=== PATIENT | female | born 1975 | race African-American/Black ===

== ENCOUNTER 2018-01-04 15:19 | Emergency (ER) | payer OTHER ==
[2018-01-04 15:54] LABS: #Lymphocytes 1.4 thou/uL (1.20-3.40); #Monocytes 0.4 thou/uL (0.11-0.59); #Neutrophils 3.1 thou/uL (1.40-6.50); %Basophils 0.1 % (0.0-1.0); %Eosinophils 0.8 % (0.0-10.0); %Lymphocytes 28.8 % (21.0-51.0); %Monocytes 8.4 % (0.0-10.0); %Neutrophils 61.9 % (42.0-75.0); Hemoglobin 7.1 g/dL (12.0-16.0); Mean Corpuscular HGB CONC 29.6 g/dL (32.0-36.0); Mean Corpuscular Hemoglobin 21.1 pg (27.0-31.0); Mean Corpuscular Volume 71.2 fL (78.0-98.0); Mean Platelet Volume 10.3 fL (7.4-10.4); Platelet Count 279 thou/uL (130-400); RBC Distribution Width 20.6 % (11.5-14.5); Red Blood Cell (RBC) Count 3.37 mill/uL (4.20-5.40)
[2018-01-04 16:05] LABS: BHCG - Serum Negative (NEGATIVE); Pregs Control Background? CLEAR/WHITE (CLR/WHITE); Pregs Control Bar Appear? YES (CONTROL BAR)
[2018-01-04 16:15] LABS: Anisocytosis MODERATE=16-30 cells (100X) (0-5/hpf); Hypochromia SLIGHT = 6-15 cells (100X) (0-5/hpf); MDiff Complete? YES; Microcytosis SLIGHT = 6-15 cells (100X) (0-5/hpf); Ovalocytes SLIGHT = 2-5 cells (100X) (0-1/hpf); PLT Morphology Comment Appears Adequate; Polychromasia SLIGHT = 2-3 cells (100X) (0-2/hpf); Target Cells SLIGHT = 2-5 cells (100X) (0-1/hpf); Tear Drops SLIGHT = 2-5 cells (100X) (0-1/hpf)
== END 2018-01-04 16:07 | disposition home or self-care (01) ==
LOC: ERS 15:19
DX: D64.9 Anemia, unspecified (principal); Z87.891 Personal history of nicotine dependence
CPT/HCPCS: 36415; 84703; 85025; 86850; 86900; 86901; 99284

== ENCOUNTER 2018-05-14 08:09 | Inpatient (IN) | payer OTHER ==
--- NOTE | 2018-05-12 23:32 | HP ---
She is set for surgery on 05/14/2018, this Sunday. HISTORY OF PRESENT ILLNESS: Ms. Gamboa is a 42-year-old -[place] female, G3, P3 with tubal li gation who was referred for abnormal Pap smear. She also has a history of uterine fibroids with heav y menstruation, where she saturates a pad every hour. She was evaluated in my office on January is year for colposcopy due to the abnormal Pap smear. She also underwent transvaginal ultrasound due to abnormal uterine findings on her exam. At that time, her uterus measured 12.6 x 9.7 x 7.5 cm, en dometrial thickness 20 mm. Both her left and right ovaries were normal in appearance. She underwent colposcopic-directed biopsies for abnormal low-grade MANSI of the cervix, which yielded C IN 3 consistent with high-grade dysplasia. PAST MEDICAL HISTORY: Negative. PAST SURGICAL HISTORY: Previous breast biopsy for benign lesion. SOCIAL HISTORY: [facility] She is a nonsmoker. No curren t alcohol or drug abuse reported. FAMILY HISTORY: Noncontributory. CURRENT MEDICATIONS: Stool softener and iron due to history of anemia due to menorrhagia. ALLERGIES: She has no known drug allergies. PHYSICAL EXAMINATION: GENERAL: Height is 5 feet 5 inches, weight 167 pounds, BMI 27.8. VITAL SIGNS: Blood pressure is 120/86, pulse regular at 81, respirations 18. HEENT: Within normal limits. CHEST: Clear to auscultation. HEART: Regular rate and rhythm. S1, S2 heart sounds. No murmurs, rubs, or gallops. ABDOMEN: Soft, nontender. No hepatosplenomegaly. Uterus is 14-week size. PELVIC: Vulva and vagina had no lesions. Cervix had no visible lesions. Colposcopic exam had been performed yielding RAHEEM 3. Her cervix had no obvious visible lesions. Uterus is enlarged, irregular contour, midline, and nontender. Adnexa were nontender with no masses. SKIN: Had no lesions. ASSESSMENT: This is a 42-year-old -[place] female, G3, P3, prior tubal ligation with, 1. 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 2. Menorrhagia and uterine fibroids, 14-week size. PLAN: Plan is for definitive surgical therapy with robotic total laparoscopic hysterectomy and remov al of bilateral fallopian tubes. We will remove the uterus through ExCITE procedure. The patient kate d underwent preoperative evaluation and description of the procedure was discussed in detail.
[2018-05-13 10:59] VITALS: BMI 26.2
[2018-05-14] MEDS ORDERED: Bupivacaine HCl 0.5%/Epinephrine 1:200,000/PF 30 ml Vial ONE (09:07)
[2018-05-14] MEDS ORDERED: Gabapentin 300 MG CAP ONE (09:11)
[2018-05-14] MEDS ORDERED: CEFAZOLIN 2 GM/50 ML BAG ONE (09:11)
[2018-05-14] MEDS ORDERED: Famotidine/PF 20 mg/2ml Vial ONE ×2 (09:12→09:49)
[2018-05-14] MEDS ORDERED: CeleCOXIB 100 MG CAP ONE (09:12)
[2018-05-14] MEDS ORDERED: Fentanyl 100 MCG/2 ML VIAL ONE ×4 (09:49→14:28)
[2018-05-14] MEDS ORDERED: Midazolam HCl 2 mg/2 ml Vial ONE (09:50)
[2018-05-14 09:56] LABS: #Basophils 0.1 thou/uL (0.0-0.2); #Lymphocytes 1.1 thou/uL (1.20-3.40); #Monocytes 0.3 thou/uL (0.11-0.59); #Neutrophils 2.2 thou/uL (1.40-6.50); %Basophils 1.5 % (0.0-1.0); %Eosinophils 0.7 % (0.0-10.0); %Lymphocytes 30.1 % (21.0-51.0); %Monocytes 8.4 % (0.0-10.0); %Neutrophils 59.4 % (42.0-75.0); Hemoglobin 11.9 g/dL (12.0-16.0); Mean Corpuscular HGB CONC 30.5 g/dL (32.0-36.0); Mean Corpuscular Hemoglobin 28.9 pg (27.0-31.0); Mean Corpuscular Volume 94.7 fL (78.0-98.0); Mean Platelet Volume 9.9 fL (7.4-10.4); Platelet Count 227 thou/uL (130-400); RBC Distribution Width 13.8 % (11.5-14.5); Red Blood Cell (RBC) Count 4.11 mill/uL (4.20-5.40); White Blood Cell (WBC) Count 3.8 thou/uL (4.8-10.8)
[2018-05-14] MEDS ORDERED: Ondansetron HCl/PF 4 MG/2 ML Vial IVP PRN ×2 (12:24→13:58)
[2018-05-14] MEDS ORDERED: Meperidine HCl/PF 25 MG/ML VIAL SLOW IVP PRN ×2 (12:24→13:58)
[2018-05-14] MEDS ORDERED: Promethazine HCl 25 MG/ML VIAL IM PRN ×3 (12:24→13:58)
[2018-05-14] MEDS ORDERED: Promethazine HCl 25 MG/ML VIAL SLOW IVP PRN ×2 (12:24→13:58)
[2018-05-14] MEDS ORDERED: Ondansetron PF 4 MG/2 ML Vial IVP PRN (13:41)
[2018-05-14] MEDS ORDERED: traMADol HCl 50 MG TAB PO PRN ×2 (13:41)
[2018-05-14] MEDS ORDERED: Bisacodyl 10 MG SUPP PR PRN (13:41)
[2018-05-14] MEDS ORDERED: Zolpidem Tartrate 5 MG TAB PO PRN (13:41)
[2018-05-14] MEDS ORDERED: diphenhydrAMINE 25 MG CAP PO PRN (13:41)
[2018-05-14] MEDS ORDERED: Ondansetron PF 4 MG/2 ML Vial ONE (14:44)
[2018-05-14] MEDS ORDERED: Metoclopramide HCl 10 MG/2 ML VIAL ONE (14:44)
[2018-05-14] MEDS ORDERED: ePHEDrine/0.9% NaCl/PF SYRINGE 50 mg/10 ml ONE (14:44)
[2018-05-14] MEDS ORDERED: Glycopyrrolate 0.2 MG/ML 5 ML SYRINGE ONE (14:44)
[2018-05-14] MEDS ORDERED: Lidocaine 1% PF 5 ML VIAL ONE (14:44)
[2018-05-14] MEDS ORDERED: PROPOFOL 200 MG/20 ML VIAL ONE (14:44)
[2018-05-14] MEDS ORDERED: Dexamethasone 20 MG/5 ML VIAL ONE (14:44)
[2018-05-14] MEDS ORDERED: Ketorolac Tromethamine 30 MG/ML VIAL ONE (14:44)
[2018-05-14] MEDS: Lactated Ringer's 1,000 ML IV SCH ×2 (15:52→22:45)
[2018-05-14 16:08] LABS: HBSAg Index 0.22 S/CO (0-0.99); Hep B Surf Ag Non-Reactive S/CO (NonReactive); Hep C IgG Ab Non-Reactive (NonReactive); Hep C Index 0.06 S/CO (0-0.79)
[2018-05-14 16:16] LABS: HIV (1/2) Antibody/Antigen Non-Reactive (NonReactive); HIV 1/2 INDEX 0.13 S/CO (<1.00)
[2018-05-14 16:17] LABS: Syphilis Antibody Nonreactive (Nonreactive); Syphilis Antibody Index 0.08 S/CO (<1.00 Non-Reactive)
[2018-05-14] MEDS: Ferrous Gluconate 324 MG TAB PO SCH (17:38)
[2018-05-14] MEDS: Ketorolac Tromethamine 30 MG/ML VIAL IVP SCH ×2 (18:08→23:41)
[2018-05-14] MEDS: Simethicone Chewable 80 MG TAB PO PRN ×2 (18:45→23:53)
--- NOTE | 2018-05-14 18:53 | OP ---
DATE OF SURGERY: 05/14/2018 PREOPERATIVE DIAGNOSES: A 42-year-old -[place] female with, 1. Symptomatic 16-week uterine fibroids, menorrhagia, dysmenorrhea. 2. Severe cervical dysplasia of the cervix. POSTOPERATIVE DIAGNOSES: A 42-year-old -[place] female with, 1. Symptomatic 16-week uterine fibroids, menorrhagia, dysmenorrhea. 2. Severe cervical dysplasia of the cervix. PROCEDURE PERFORMED: 1. Robotic TLH with bilateral salpingectomy. 2. Removal of the uterus via the ExCITE procedure. SURGEON: Jes Fraser M.D. OPHTHALMIC TECH SURGEON: Faiza Reis MD ANESTHESIA: General endotracheal. ESTIMATED BLOOD LOSS: 100 mL COMPLICATIONS: None. COUNTS: Correct x2. ANTIBIOTICS: Two grams Ancef agronomy instructor to the OR. FINDINGS: 1. Normal-appearing bilateral ovaries and two fallopian tubes, status post BTL. 2. Approximately 16-week size uterus with multiple small and large fibroids, largest fibroid being a pproximately 6 cm in posterior mid uterus. 3. Bilateral ureteral peristalsis visualized post procedure along with bladder being watertight to f luid distention over 300 mL post procedure. DISPOSITION: To the recovery room, stable. DESCRIPTION OF OPERATIVE PROCEDURE: The patient previously received informed consent in regard to [facility]. She was taken back to the operating room where she received a general endotracheal anesthetic agent without complications. She was then placed in the dorsal lithotomy position with the use of A llen stirrups and prepped and draped in usual sterile fashion. Ceja catheter was placed at this nanci e. Sidearm speculum was placed in the vagina. Anterior lip of cervix grasped with single tooth mike culum. Uterus sounded to 10 cm and a size 10 cm CORDELIA uterine manipulator with a 4.0 cervical cup was placed. Tenaculum and speculum were then removed. Attention was then turned to the abdomen where p erspective trocar sites were infiltrated with 0.5% Marcaine with epinephrine. A 12 mm supraumbilical incision was made. Veress needle was entered into the peritoneal cavity. Patient pressure was note d to be less than 15 and abdomen was insufflated to patient pressure of 15, approximately 4.5 liters of carbon dioxide gas. The laparoscope was then introduced through a trocar sleeve and the previousl y mentioned findings as noted. Due to the large size of the uterus, we then felt that this would nee d to be removed in a contain bag technique and therefore, the umbilical incision was extended to the fascial defect. Approximately 2.5 cm small Gelpoint was then placed in the umbilicus region. Trocar sleeve was placed through the Gelpoint, laparoscope was introduced there and then additional bilater al lower quadrant 8 mm robotic trocars along with a right upper quadrant 11 mm bindery assistant port was the n placed. The robot was then docked in usual fashion. The patient had been placed in deep Trendelen rajan position. I proceeded to carry out this surgery from the operative console where my assistants remained at the bedside. Uterus was elevated from the pelvis. The left ovary and fallopian tube wer e identified. My bindery assistant grasped the fimbriated edge of the fallopian tube and then this was caute rized at the mesosalpinx with bipolar fenestrated cautery and excised with monopolar scissors. This tube was removed through right upper quadrant bindery assistant port. The left uterine ovarian ligament was identified, coagulated with bipolar fenestrated cautery, transected. Serial coagulation of the broad ligament, hugging close to uterus and fibroid specimen was carried out dissecting the peritoneum, la teral and dissecting the uterus towards the midline, freeing the pelvic sidewall. The course of the uterus was visualized during this time and was inferior to the dissection region. The left round lig ament was then reached. It was coagulated and transected. The anterior leaf of the broad ligament w as entered. The vesicouterine peritoneum was incised in a layering technique dissecting the bladder atraumatically past the cervical vaginal angle, which was visualized by the indention of the cervical cup from the manipulator. The uterine vessels on the left side were skeletonized in a layering tech nique and coagulated internal cervical os region. This was carried out in likewise fashion starting again on the right fallopian tube where it was grasped by my bindery assistant and the mesosalpinx of the tub e was coagulated and transected and the tube was removed through the right upper quadrant. The right uterine ovarian ligaments again were coagulated and transected. Serial coagulation of the broad lig ament, hugging close to the uterus, was carried out until the right round ligament was reached. They again was coagulated and transected. Anterior leaf of broad ligament again was entered incising the vesicouterine peritoneum in a layering technique until the bladder was safely past the cervical vagi nal junction. The internal uterine vessels after they were skeletonized were coagulated again in a l ikewise fashion. The anterior colpotomy was then made starting at the 12 to 3 o'clock position and t he uterine vessels that remained here were coagulated inside the colpotomy incision site. The yeast cake cutter ior colpotomy was then completed from 6-9 and 6-3 in similar fashion. The specimen was then released and the pelvis and taken off the uterine manipulator and would be able to be removed in morcellating technique contain bag due to the size. There was some bleeding of small uterine artery bleeder on t he patient's left side at the 9 o'clock position. Monopolar scissor cautery had been switched out fo r [place] needle haul truck driver. This allowed me to grasp the cuff and elevated and then the individual vessel was coagulated under direct visualization with good hemostasis. After this was secured, the Strataf ix was brought in by my bindery assistant through the right upper quadrant, one end of the vaginal cuff was c losed in full thickness starting right angle back to the left angle back towards the midline. This s uture was cut and removed intact to the right upper quadrant port. At this time, the large bag which had been placed prior to replacing the laparoscope in the right upper quadrant was brought sandip n into the pelvis. It had been folded and tied with 2 sutures. The bag was placed in the pelvis in the upright position and the specimen was then brought above the bag by myself and my bindery assistant. The suture ties were then cut by my bindery assistant with Endo[employer]ars and this allowed for opening of the bag an d allowing us to stuff the specimen into the bag. The free end of the loop string was brought through a free tie loop and then we pulled this up towards the Gelpoint. I broke the scrub and then we decided to start pulling the bag up through the Gelpoint and then we noticed at this time that the specimen had apparently fallen out, so therefore, we redocked the robot and then repeated this in si milar fashion and again visualizing the tissue be in place within the bag and this was secured bringi ng the string through the loop and this was kept under direct visualization. At this time, we noted that the specimen was contained within the bag and then we proceeded to place the guard over the Gelp oint site, and the specimen was then grasped with Madan thyroid clamps and it was removed in a contai baltazar morcellating technique with a C cut to allow the specimen and it was removed. The bag was then i nspected and was noted to be intact and watertight. The bag had been removed. The fascial edges of the umbilical defect was then closed with a running 0 Vicryl suture with good fascial closure noted. All the other trocar sites were closed with subcuticular 4-0 Monocryl and Dermabond for good hemosta sis. The pelvis was inspected and no active bleeding was noted in the vaginal cuff side vaginally wi th a sponge stick. The patient was awakened from anesthesia and transferred to the recovery room in stable condition.
[2018-05-14] MEDS: Docusate 100 MG CAP PO SCH (21:16)
[2018-05-14] MEDS: Ibuprofen 800 MG TAB PO SCH (21:17)
[2018-05-15] MEDS: Lactated Ringer's 1,000 ML IV SCH ×2 (05:52→15:58)
[2018-05-15] MEDS: Ketorolac Tromethamine 30 MG/ML VIAL IVP SCH ×2 (05:53→12:50)
[2018-05-15 06:25] LABS: Hemoglobin 9.5 g/dL (12.0-16.0); Mean Corpuscular HGB CONC 31.4 g/dL (32.0-36.0); Mean Corpuscular Hemoglobin 29.7 pg (27.0-31.0); Mean Corpuscular Volume 94.4 fL (78.0-98.0); Mean Platelet Volume 9.5 fL (7.4-10.4); Platelet Count 190 thou/uL (130-400); RBC Distribution Width 13.3 % (11.5-14.5); White Blood Cell (WBC) Count 11.2 thou/uL (4.8-10.8)
[2018-05-15] MEDS: Ferrous Gluconate 324 MG TAB PO SCH (08:39)
[2018-05-15] MEDS: Docusate 100 MG CAP PO SCH (08:39)
[2018-05-15] MEDS: Ibuprofen 800 MG TAB PO SCH (09:11)
[2018-05-15 12:07] VITALS: BP 105/58; TEMP 98.4
--- NOTE | 2018-05-15 20:17 | DIS ---
DATE OF ADMISSION: 05/14/2018 DATE OF DISCHARGE: 05/15/2018 DIAGNOSES: 1. Symptomatic 16-week uterine fibroids. 2. Severe cervical dysplasia. PROCEDURES PERFORMED: Robotic total laparoscopic hysterectomy, bilateral salpingectomy with pr ocedure for tissue removal. SUMMARY OF HOSPITAL COURSE: Ms. Gamboa is a 42-year-old -[place] female with long history of menorrhagia with previous severe anemia due to uterine fibroids. She was recently also diagnosed wit h cervical dysplasia severe. She underwent a definitive surgical therapy with robotic total laparosc opic hysterectomy and bilateral salpingectomy on 05/14/2018. Postoperatively, she has done well. Vi britt signs remained stable. She has remained afebrile. Her postoperative hematocrit was 30.8%. She was ambulating and voiding without difficulty on postop day #1 and tolerating diet. She was discharg ed with discharge medication Tramadol 50 mg q.6 hours p.r.n. pain, ibuprofen 800 mg p.o. q.8 hours p. r.n. pain. Pathology is pending at this time of dictation and she has scheduled followup 6 brenna marques postop.
== END 2018-05-15 16:03 | DRG 743 ==
LOC: EEVIPCON 08:09 → SURG A 08:09 → 3SE 15:14
PROVIDERS: ADMIT Obstetrics & Gynecology; ATTEND Obstetrics & Gynecology
PROC: 0UT94ZZ Resection of Uterus, Percutaneous Endoscopic Approach (ICD-10-PCS; principal; 2018-05-14)
PROC: 0UT24ZZ Resection of Bilateral Ovaries, Percutaneous Endoscopic Approach (ICD-10-PCS; 2018-05-14)
PROC: 0UT74ZZ Resection of Bilateral Fallopian Tubes, Percutaneous Endoscopic Approach (ICD-10-PCS; 2018-05-14)
PROC: 8E0W4CZ Robotic Assisted Procedure of Trunk Region, Percutaneous Endoscopic Approach (ICD-10-PCS; 2018-05-14)
DX: N92.0 Excessive and frequent menstruation with regular cycle (principal); D06.9 Carcinoma in situ of cervix, unspecified; N94.6 Dysmenorrhea, unspecified; D25.9 Leiomyoma of uterus, unspecified; D50.0 Iron deficiency anemia secondary to blood loss (chronic)
CPT/HCPCS: 36415; 85025; 85027; 86780; 86803; 86850; 86900; 86901; 87340; 87389; 88307; J0131; J0670; J1100; J1885; J2001; J2250; J2405; J2704; J2765; J3010; S0028

== ENCOUNTER 2018-05-23 20:52 | Inpatient (IN) | payer OTHER ==
[~2018-05-23 20:52] MED LIST: ISOVUE-370 76%-LOCM 1 ML ONE
[2018-05-23] MEDS ORDERED: Morphine 4 MG/ML VIAL ONE (21:30)
[2018-05-23 21:42] LABS: #Eosinphils 0.1 thou/uL (0.0-0.7); #Lymphocytes 0.9 thou/uL (1.20-3.40); #Monocytes 0.5 thou/uL (0.11-0.59); #Neutrophils 10.4 thou/uL (1.40-6.50); %Basophils 0.2 % (0.0-1.0); %Eosinophils 0.5 % (0.0-10.0); %Lymphocytes 7.5 % (21.0-51.0); %Monocytes 4.5 % (0.0-10.0); %Neutrophils 87.2 % (42.0-75.0); Hemoglobin 10.6 g/dL (12.0-16.0); Mean Corpuscular HGB CONC 33.5 g/dL (32.0-36.0); Mean Corpuscular Hemoglobin 30.7 pg (27.0-31.0); Mean Corpuscular Volume 91.9 fL (78.0-98.0); Mean Platelet Volume 8.9 fL (7.4-10.4); Platelet Count 276 thou/uL (130-400); RBC Distribution Width 13.3 % (11.5-14.5); Red Blood Cell (RBC) Count 3.44 mill/uL (4.20-5.40)
[2018-05-23 22:03] LABS: ALT (SGPT) 9 U/L (8-55); AST (SGOT) 16 U/L (5-34); Albumin 3.5 g/dL (3.5-5.0); Alkaline Phosphatase 72 U/L (40-150); Anion Gap 10 mmol/L (10-20); BUN (Urea Nitrogen) 13 mg/dL (7.0-18.7); Bilirubin, Total 0.4 mg/dL (0.2-1.2); Calc. Creatinine Clearance 0 mL/min (70-130); Calcium 8.7 mg/dL (7.8-10.44); Carbon Dioxide 23 mmol/L (22-29); Chloride 106 mmol/L (98-107); Estimated GFR-MDRD Greater than 90; Globulin 4.6 g/dL (2.4-3.5); Glucose 101 mg/dL (70-105); Protein, Total 8.1 g/dL (6.0-8.3); Sodium 135 mmol/L (136-145)
[2018-05-23 22:24] LABS: Bilirubin Negative (Negative); Blood, Urine Moderate (Negative); Clarity CLEAR (Clear); Glucose, Urine (Dipstick) Negative (Negative); Leukocyte Moderate (Negative); Nitrite Negative (Negative); Protein, Urine (Dipstick) 30 mg/dL (Neg-Trace); Urobilinogen 0.2 mg/dL (0.2-1.0)
[2018-05-23 22:26] LABS: Bacteria/HPF Rare-Few HPF (None Seen); Pathc Cast-AUWi Flag 1.59 (0-2.49); Squamous Epithelial 0-3 HPF (0-3)
--- NOTE | 2018-05-23 22:28 | CT ---
ABDOMEN AND PELVIS CT 05/23/18 COMPARISON: None. HISTORY: Abdominal and pelvic pain with cramping. TECHNIQUE: Axial CT imaging at 5 mm intervals from lung bases through pubic symphysis with intravenous contrast. Coronal reformatted imaging obtained. FINDINGS: Lack of oral contrast limits assessment of the bowel. Imaged lung bases unremarkable. No free intrape ritoneal air. The liver, gallbladder, and spleen appear unremarkable. The pancreas, adrenal glands, and kidneys are unremarkable. There is a suggestion of wall thickening involving the sigmoid colon and rectum with perirectal infla mmatory change and presacral fat stranding. This suggests an inflammatory process of distal sigmoid c olon and rectum. In addition, there appear to be abnormal thick walled loops of small bowel within th e pelvis anteriorly and in the right lower quadrant, which includes the terminal ileum. There is exte nsive inflammatory fat stranding involving the lower pelvis superior to the urinary bladder which dem onstrates continuity between the abnormal appearing distal colon and the abnormal appearing distal sm all bowel. The appendix appears grossly unremarkable. The vascular structures of the abdomen and pelvis appear patent. No discrete lymphadenopathy is appre ciated within the abdomen or pelvis. The osseous structures demonstrate no worrisome lytic or blastic lesions. IMPRESSION: Extensive inflammatory change within the pelvis with findings suggesting inflammation of distal colon as well distal small bowel. This suggests a multifocal inflammatory process, which may be on the bas is of inflammatory bowel disease/Crohn's disease. Nonspecific infectious process is a possibility. Re commend short term followup imaging following treatment to document resolution. No drainable abscess is evident at this time. Additional history provided includes pelvic surgery on 05/14/18. Thus, this inflammatory process cou ld potentially be on the basis of postoperative infection. Clinical correlation is essential. Results called to Dr. Treviño at 10 p.m., 05/23/18. Code CR POS: [facility]
[2018-05-23 22:31] LABS: Specific Gravity, Urine Greater than 1.060 (1.002-1.036)
[2018-05-23 22:49] LABS: Hyaline Casts/LPF 0-3 HYALINE CAST LPF (0-3 Hyaline)
[2018-05-24] MEDS ORDERED: Ondansetron ODT 4 MG TAB SL PRN (01:14)
[2018-05-24] MEDS ORDERED: Ondansetron PF 4 MG/2 ML Vial IVP PRN (01:14)
[2018-05-24] MEDS ORDERED: Acetaminophen 325 MG TAB PO PRN (01:14)
[2018-05-24] MEDS ORDERED: Morphine 10 MG/ML VIAL SLOW IVP PRN (01:15)
[2018-05-24] MEDS: Lactated Ringer's 1,000 ML IV SCH ×2 (01:40→10:56)
[2018-05-24 02:54] VITALS: BMI 27.6
[2018-05-24] MEDS ORDERED: Nitrofurantoin Monohyd/M-Cryst 100 MG CAP PO SCH (09:00)
[2018-05-24] MEDS: Morphine 2 MG/ML SYRINGE SLOW IVP PRN (09:45)
[2018-05-24] MEDS: Clindamycin/D5W 900 MG in Premix Bag 1 BAG IVPB SCH ×2 (10:55→18:38)
[2018-05-24] MEDS: Ibuprofen 800 MG TAB PO SCH ×2 (12:09→18:37)
[2018-05-24] MEDS: Ampicillin 2 GM in Sodium Chloride 0.9% 100 ML IVPB SCH ×3 (12:10→23:29)
[2018-05-24] MEDS: Gentamicin Sulfate 320 MG in Sodium Chloride 0.9% 100 ML IVPB SCH (12:51)
[2018-05-24] MEDS: HYDROcodone/Acetaminophen 5/325 mg Tablet PO PRN ×2 (18:01→23:35)
--- NOTE | 2018-05-25 00:08 | HP ---
CHIEF COMPLAINT: Lower abdominal cramping. HISTORY OF PRESENT ILLNESS: This is a 42-year-old status post robotic-assisted total laparoscopic hysterectomy and bilateral salpingectomy with extracorporeal morcellation for benign fibroid uterus, postoperative day #9, doing well up until 3 days ago, she began having increasingly and progressive lower abdominal cramping pain, she describes as contractions that will come strong for 20 to 30 seconds and then resolve. This has been increasing in frequency and intensity. This pain is unrelieved with ibuprofen and Tylenol. She does endorse some chills and some radiating pain down to her rectum and back. She was initially constipated and then took some milk of magnesia and that resulted in diarrhea. She also reports slight increase in frequency of urination, no burning with urination. She denies any vaginal bleeding or vaginal discharge. She has had fairly normal appetite and denies any nausea or vomiting. REVIEW OF SYMPTOMS: A 12-point review of systems is negative except as noted in HPI. PAST MEDICAL HISTORY: None. PAST SURGICAL HISTORY: Breast biopsy for benign breast lesion. SOCIAL HISTORY: Currently incarcerated. Negative for tobacco, alcohol, or drug use. FAMILY HISTORY: Noncontributory. CURRENT MEDICATIONS: 1. Ibuprofen 800 mg p.o. q.8 hours p.r.n. pain. 2. Iron sulfate 325 mg p.o. b.i.d. 3. Colace stool softener 100 mg p.o. b.i.d. ALLERGIES: NO KNOWN DRUG ALLERGIES. PHYSICAL EXAMINATION: VITAL SIGNS: Blood pressure 101/50, pulse 70, respirations 20, pulse ox 97% on room air, temperature 98.3. GENERAL: No acute distress. Alert and oriented x3. CARDIAC: Regular rate and rhythm. LUNGS: Clear to auscultation bilaterally. ABDOMEN: Soft, nondistended, diffusely tender, more so in the lower abdomen. No guarding or rebound. No palpable masses or hernias present. Incisions are healing well with Dermabond glue in place. EXTREMITIES: No edema, cyanosis, or clubbing. PELVIC: Normal external female genitalia. The vaginal mucosa is moist without masses or lesions. The vaginal cuff is visualized. There is some yellow-brown discharge present at the level of the vaginal cuff. There is an approximately 2-cm area with a whitish appearance at the suture line on the patient's right side that is swabbed with a Q-tip and found to have fibrinous exudate and is extremely tender to palpation and has surrounding erythematous tissue with induration present. On bimanual exam, the entire suture line is exquisitely tender for the patient. The cuff was palpated to be intact. LABORATORY DATA: White count 12.0, hemoglobin 10.6, hematocrit 31.6, platelets are 276. Chemistries are normal. UA shows 1+ protein, trace of ketones, moderate blood, moderate leukocyte esterase. Culture is pending. IMAGING DATA: CT of the abdomen and pelvis shows extensive inflammatory change within the pelvis with findings suggesting inflammation of the distal colon as well as distal small bowel. No drainable abscess is present. ASSESSMENT AND PLAN: This is a 42-year-old postoperative day #10 from robotic-assisted hysterectomy, now presenting with increased abdominal pain and findings on exam consistent with vaginal cuff cellulitis. The patient will be admitted as an inpatient for treatment with IV antibiotics for 24 to 48 hours until clinical improvement and pain is present. She has no fever at this time and if spikes a temp, would plan to drawn blood cultures. She had a urine culture that is currently pending and evidence of urinary tract infection on urinalysis as well. Antibiotic choice will be broad spectrum with ampicillin, gentamicin, and clindamycin. She will be allowed a regular diet as well as ambulation ad jenny and pain control with p.o. pain meds of [place] and ibuprofen. Job ID: [id number]
[2018-05-25] MEDS: Ibuprofen 800 MG TAB PO SCH ×3 (02:48→17:39)
[2018-05-25] MEDS: Clindamycin/D5W 900 MG in Premix Bag 1 BAG IVPB SCH ×3 (02:48→18:19)
[2018-05-25] MEDS: Ampicillin 2 GM in Sodium Chloride 0.9% 100 ML IVPB SCH ×4 (05:57→23:57)
--- NOTE | 2018-05-25 08:49 | PRG ---
DATE OF SERVICE: 05/25/2018 POSTOPERATIVE READMIT SUBJECTIVE: The patient is hospital day #2, postop day #10, status post a robotic-assisted total laparoscopic hysterectomy, admitted for cuff cellulitis, on ampicillin, gentamicin, and clindamycin. The patient has remained afebrile during her stay. This morning, she reports that her pain overall has been improving as compared to yesterday at the time of admission. The patient denies fever. PHYSICAL EXAMINATION: VITAL SIGNS: This morning, her blood pressure is 95/50, respiratory rate of 16, temperature is 98.2, and pulse is 76. GENERAL: She appears to be in no acute distress. She is alert and oriented, cooperative, and pleasant to interact with. HEAD: Normocephalic, atraumatic. ABDOMEN: Incisions were clean, dry, and intact on her abdomen. Abdomen is appropriately tender. ASSESSMENT AND PLAN: The patient is hospital day #2, has had about 24 hours of antibiotics for a postop cuff cellulitis after a total laparoscopic hysterectomy. Pain is improving as compared to admission. We will continue antibiotics for the next 24 hours and anticipate discharge tomorrow with oral antibiotics. Job ID: [id number]
[2018-05-25] MEDS: Gentamicin Sulfate 320 MG in Sodium Chloride 0.9% 100 ML IVPB SCH (09:21)
[2018-05-25] MEDS: HYDROcodone/Acetaminophen 5/325 mg Tablet PO PRN ×3 (11:14→23:56)
[2018-05-25] MEDS: Morphine 2 MG/ML SYRINGE SLOW IVP PRN (18:19)
[2018-05-26] MEDS: Ibuprofen 800 MG TAB PO SCH ×3 (02:23→17:24)
[2018-05-26] MEDS: Clindamycin/D5W 900 MG in Premix Bag 1 BAG IVPB SCH ×3 (02:24→18:10)
[2018-05-26] MEDS: Ampicillin 2 GM in Sodium Chloride 0.9% 100 ML IVPB SCH ×3 (06:17→17:24)
[2018-05-26] MEDS: HYDROcodone/Acetaminophen 5/325 mg Tablet PO PRN ×3 (07:20→17:26)
[2018-05-26] MEDS ORDERED: Bisacodyl 5 MG TAB PO PRN (07:29)
[2018-05-26] MEDS: Gentamicin Sulfate 320 MG in Sodium Chloride 0.9% 100 ML IVPB SCH (10:42)
[2018-05-27] MEDS: HYDROcodone/Acetaminophen 5/325 mg Tablet PO PRN ×4 (00:05→17:22)
[2018-05-27] MEDS: Clindamycin/D5W 900 MG in Premix Bag 1 BAG IVPB SCH ×3 (00:12→17:22)
[2018-05-27] MEDS: Ampicillin 2 GM in Sodium Chloride 0.9% 100 ML IVPB SCH ×4 (00:39→17:22)
[2018-05-27] MEDS: Ibuprofen 800 MG TAB PO SCH ×3 (02:18→18:09)
--- NOTE | 2018-05-27 07:48 | PRG ---
DATE OF SERVICE: 05/26/2018 TIME OF SERVICE: 0730. SUBJECTIVE: Ms. Gamboa is on hospital day #2 for postoperative cuff cellulitis status post TLH. The patient reports that her abdominal pain is essentially unchanged from yesterday. In addition, she has not been able to have a bowel movement postoperatively. She does report passing gas. She reports no difficulties with urination. She reports no vomiting. OBJECTIVE: VITAL SIGNS: Temperature is 98.7, pulse 76, respirations 18, blood pressure 127/61, T-max is 98.7 yesterday. LUNGS: Clear to auscultation bilaterally. HEART: Regular rate and rhythm. ABDOMEN: Soft. She has discomfort to palpation in bilateral lower quadrants and in the midline. She has positive bowel sounds. No CVA tenderness. PELVIC: Deferred. EXTREMITIES: No clubbing, cyanosis, or edema. LABORATORY DATA: The patient has not had any repeat labs since admission; however, initial WBC was 12,000, and with no fever, I see no point for repeating at this time. MICROBIOLOGY: Urine culture on revealed presumptive E. coli. screen on 05/24, is negative. IMPRESSION: Postoperative cuff cellulitis with no real significant clinical improvement over yesterday, but no evidence of worsening condition. PLAN: We will continue IV antibiotics, initiate Dulcolax, encourage ambulation and hot liquid consumption, and anticipate possible discharge on 05/27. We will discuss plan of care with Dr. Ellis, the patient's primary analytical technician. Job ID: [id number]
--- NOTE | 2018-05-27 08:06 | PDOC.EVN ---
Event Note - Event Note Event Note: S:Feeling better. Had bowel movement. Tolerating diet. O:Afebrile. T current 97.8 104/61 P69 R16 Abdomen:soft, non distended. Mild tenderness BLQ. No rebound. A/P: post op cuff cellulitis..UTI with E coli-sensitive to AMpicillin. Continue IV antibiotics today and plan to discharge back to [facility] in AM on Augmentin
[2018-05-27] MEDS: Gentamicin Sulfate 320 MG in Sodium Chloride 0.9% 100 ML IVPB SCH (09:39)
[2018-05-28] MEDS: Ampicillin 2 GM in Sodium Chloride 0.9% 100 ML IVPB SCH ×3 (00:25→11:56)
[2018-05-28] MEDS: HYDROcodone/Acetaminophen 5/325 mg Tablet PO PRN ×2 (00:29→06:01)
[2018-05-28] MEDS: Clindamycin/D5W 900 MG in Premix Bag 1 BAG IVPB SCH ×2 (01:09→08:23)
[2018-05-28] MEDS: Ibuprofen 800 MG TAB PO SCH ×2 (03:26→10:16)
--- NOTE | 2018-05-28 10:27 | PDOC.EVN ---
Event Note - Event Note Event Note: Feeling much better O:afebrile.vss abdomen is soft/ non tender A/P much improved. afebrile. D/c . Augment 875 mg bid x 7d. f/u in 4 weeks.
[2018-05-28 12:19] VITALS: BP 121/65; TEMP 98.2
--- NOTE | 2018-05-29 10:42 | DIS ---
DATE OF ADMISSION: 05/24/2018 DATE OF DISCHARGE: 05/28/2018 DIAGNOSES: 1. Vaginal cuff cellulitis status post robotic hysterectomy. 2. Urinary tract infection. SUMMARY OF HOSPITAL COURSE: Ms. Gamboa was approximately 10 days postop from robotic hysterectomy with large uterus with removal of the tissue through procedure. She started having increasing pain, was evaluated and was noted to have vaginal cuff cellulitis clinically. She underwent a CAT scan in the ER, which showed extensive stranding and inflammatory changes in her pelvis. No other urological issues or GI issues noted. She was started on triple-antibiotic coverage with ampicillin, gentamicin, and clindamycin. Also, urine culture was sent. She did grow up 10 to the 5th colonies of E. coli, sensitive to ampicillin and gentamicin. Her pain improved gradually, and had improvement in her pain on approximately hospital day #3. She continued IV antibiotics and was discharged on the morning of 12, on another 7-day course of Augmentin 875 mg p.o. b.i.d., [id number] ibuprofen as needed for pain, and tramadol 50 mg q.6 hours p.r.n. pain. She has a followup scheduled in 4 weeks for postop visit. Job ID: [id number]
== END 2018-05-28 14:08 | DRG 863 ==
LOC: ERS 20:52 → OBSVTOIN 05-24 01:06 → 3SE 05-24 01:06
PROVIDERS: ADMIT Student in an Organized Health Care Education/Training Program; ATTEND Student in an Organized Health Care Education/Training Program
DX: T81.49XA Infection following a procedure, other surgical site, initial encounter (principal); N39.0 Urinary tract infection, site not specified; N73.2 Unspecified parametritis and pelvic cellulitis; Z90.710 Acquired absence of both cervix and uterus; B96.20 Unspecified Escherichia coli [E. coli] as the cause of diseases classified elsewhere; D64.9 Anemia, unspecified; R19.7 Diarrhea, unspecified; Y83.6 Removal of other organ (partial) (total) as the cause of abnormal reaction of the patient, or of later complication, without mention of misadventure at the time of the procedure
CPT/HCPCS: 74177; 80053; 81003; 81015; 85025; 87077; 87086; 87186; 87480; 87510; 87660; 96374; J0290; J1580; J2270; J3490; J7050

== ENCOUNTER 2018-06-21 07:54 | Outpatient (CLI) | payer OTHER ==
--- NOTE | 2018-06-21 10:15 | ULT ---
LIMITED LEFT BREAST ULTRASOUND: 06/21/2018 PROVIDED CLINICAL HISTORY: Nipple discharge. FINDINGS: Limited sonographic interrogation was performed of the retroareolar regions of the left breast. No e vidence for ductal dilatation, mass, or other abnormal finding. IMPRESSION: BI-RADS category 1-Negative. Negative imaging findings do not preclude further evaluation of a clinically suspicious finding. Th e patient is referred back to her clinician. POS: OFF
--- NOTE | 2018-06-21 10:15 | ULT ---
LIMITED RIGHT BREAST ULTRASOUND: Date: 06-21-18 Provided Clinical History: Right nipple discharge. FINDINGS: Limited sonographic interrogation of the retroareolar portions of the right breast demonstrate no elissa dence for ductal dilatation, mass, or other abnormal finding. IMPRESSION: BIRADS category 1 - negative. Negative imaging findings should not preclude further evaluation of a c linically suspicious finding. The patient is referred back to her clinician. POS: OFF
== END 2018-06-21 07:55 | disposition home or self-care (01) ==
LOC: BICMAMMO 07:54
PROVIDERS: ATTEND Family Medicine
DX: N64.3 Galactorrhea not associated with childbirth (principal); Z80.3 Family history of malignant neoplasm of breast
CPT/HCPCS: 77066; G0279